=== PATIENT | female | born 1955 | race Caucasian/White ===

== ENCOUNTER 2016-07-17 10:25 | Outpatient (CLI) | payer BC, MEDICAID | END 2016-07-17 10:26 | disposition home or self-care (01) | DX: I10 Essential (primary) hypertension (principal); E28.2 Polycystic ovarian syndrome ==

== ENCOUNTER 2016-08-21 09:00 | Outpatient (CLI) | payer MEDICAID ==
[2016-08-21 08:07] LABS: CREATININE 0.8 mg/dL (0.4-1.0)
[2016-08-21] MEDS ORDERED: GADOBUTROL 10 MMOL/10 ML VIAL IVP ONE (10:00)
--- NOTE | 2016-08-21 11:13 | MRI Report ---
EXAM: RIGHT FOREARM MRI WITHOUT AND WITH CONTRAST EXAM DATE: 08/21/2016 10:10 AM. CLINICAL HISTORY: RT forearm mass for a few years, getting bigger, intermittent shooting pain from mass to RT wrist. Hx of bilateral carpal tunnel surgeries. COMPARISON: Right forearm series 08/06/2016. TECHNIQUE: Multiplanar, multisequence T1-weighted and fluid-sensitive sequences of the forearm before and after administration of intravenous contrast. IV contrast: 4mL Gadavist. Other: A skin marker w as placed over the site of lesion for reference. FINDINGS: Images are degraded by patient motion artifacts. Bones: No fractures or subluxations. No marrow edema or abnormal enhancement. No bone lesions. Joint Spaces: The wrist and elbow joints are not included. Ligaments: Visualize a portion of the interosseous membrane is intact. Tendons: Where visualized, the proximal wrist tendons are intact Musculature: No edema or fatty atrophy. Other: The lesion of concern is in the lateral subcutaneous tissues roughly in the mid forearm, oval- shaped in sagittal plane and wedge-shaped in axial plane measuring 36 x 26 x 34 mm with a well define d thin capsule, of mostly nonenhancing homogeneous fat signal except for a small ill-defined area of mildly increased T2 signal and mildly increased enhancement in the ventral part. No enlarged perilesi onal or intralesional vasculature. No abscess or cellulitis. IMPRESSION: The mass in the subcutaneous compartment of the right forearm has signal characteristic o f a lipoma measuring 36 x 26 x 34 mm with a well defined thin capsule. A small ill-defined area of mi ldly increased T2 signal and mildly increased enhancement in the ventral part of the lesion which is atypical for a benign lipoma but can be secondary to mild contusion with mild inflammation and not ne cessarily indicating sarcomatous transformation. However if there is progressive increase in size colleen n, follow-up imaging will be helpful to check for any morphological change that may raise a concern o f malignant transformation. Alternatively, excisional biopsy may be considered to obtain definitive h istological diagnosis. [facility] MUSCULOSKELETAL RADIOLOGY SECTION Referring Provider Line: [phone] SITE ID: [id number]
== END 2016-08-21 23:59 ==
LOC: DI 09:00
PROVIDERS: ATTEND Orthopaedic Surgery
DX: D17.21 Benign lipomatous neoplasm of skin and subcutaneous tissue of right arm (principal)
CPT/HCPCS: 36415; 73220; 82565; A9585

== ENCOUNTER 2016-10-16 08:01 | Day surgery (SDC) | payer MEDICAID ==
[2016-10-16] MEDS ORDERED: ceFAZolin 2 GM/50 ML 50 ML IV ONE (08:34)
[2016-10-16] MEDS ORDERED: LACTATED RINGERS 1,000 ML IV ONE ×2 (09:00→10:13)
[2016-10-16] MEDS ORDERED: SCOPOLAMINE PATCH TOP ONE (09:27)
[2016-10-16] MEDS ORDERED: PROPOFOL 200 MG/20 ML VIAL IVP ONE (09:45)
[2016-10-16] MEDS ORDERED: fentaNYL 100 MCG/2 ML VIAL IVP ONE (09:45)
[2016-10-16] MEDS ORDERED: ONDANSETRON 4 MG/2 ML VIAL IVP ONE (09:45)
[2016-10-16] MEDS ORDERED: DEXAMETHASONE 4 MG/ML VIAL IVP ONE (09:45)
[2016-10-16] MEDS ORDERED: MIDAZOLAM 2 MG/2 ML VIAL IVP ONE (09:45)
[2016-10-16] MEDS ORDERED: LIDOCAINE-MPF 2% 5 ML VIAL IM ONE (09:45)
[2016-10-16] MEDS ORDERED: LIDOCAINE 1% 50 ML MDV SUBQ ONE (09:54)
[2016-10-16] MEDS ORDERED: ALBUTEROL NEB 2.5 MG/3 ML INH ONE (10:18)
[2016-10-16] MEDS ORDERED: KETOROLAC 15 MG/ML VIAL ONE (10:32)
[2016-10-16] MEDS ORDERED: fentaNYL 100 MCG/2 ML VIAL ONE (10:35)
[2016-10-16] MEDS ORDERED: HYDROcod/ACETAM 5/325 MG TABLET ONE (11:24)
[2016-10-16 11:48] VITALS: BP 150/68
--- NOTE | 2016-10-16 13:18 | OPERATIVE REPORT ---
DATE OF SURGERY: 10/16/2016 00:00:00 PREOPERATIVE DIAGNOSIS: Right forearm mass. POSTOPERATIVE DIAGNOSIS: Right forearm mass. NAME OF PROCEDURE: Excisional biopsy of right forearm mass. SURGEON: Ebony Pulliam MD ANESTHESIA: General. INDICATIONS FOR SURGERY: The patient is a 61-year-old female with a progressively and slow growing ri ght volar radial forearm mass. This has not been terribly symptomatic, but it is bothersome to her an d there has been documented growth, with MRI suggesting a simply lipoma. FINDINGS AT SURGERY: The patient's volar radial mass was in the subcutaneous tissue. It was typical a ppearance of a lipoma. However, the patient had what appeared to be radial sensory fibers running int o the lesion and essentially a tangled web of loose nerve fibers. They were not able to be preserved and were resected with the mass. The radial vasculature was lying beneath, the radial artery was bene ath the lesion. There was no induration or hypertrophy of vessels or reaction. DESCRIPTION OF OPERATIVE PROCEDURE: The patient was taken to the operating room, given a general anes thetic. Her arm was sterilely prepped and draped in standard fashion. An incision was marked longitudinal over the volar radial forearm, and, after adequate timeout, the i ncision was made over the lesion and a careful dissection down through soft tissue was made to the le joellen. It was able to be freely mobilized. It did not appear to be encapsulated, but represented a lar ge conglomeration of fat with the tethered small vessels in the nerve defined distally but not proxim ally, and showing branching into the lesion. It was attempted to preserve these branches, ultimately finding that the nerve really had to be resected with the lesion as well, and it was removed. The area was irrigated thoroughly and tourniquet was deflated. Closure was with interrupted Vicryl azevedo bcutaneous and Prolene in skin. Sterile dressings were applied. Patient was placed in a volar splint and taken to the recovery room in stable condition. ESTIMATED BLOOD LOSS: Minimal. COMPLICATIONS: None. SPONGE/NEEDLE COUNTS: Correct. JOB #: [id number] EXT JOB #:[id number]
== END 2016-10-16 08:02 | disposition home or self-care (01) ==
LOC: SDS 08:01
PROVIDERS: ATTEND Orthopaedic Surgery
PROC: 0JBG0ZZ Excision of Right Lower Arm Subcutaneous Tissue and Fascia, Open Approach (ICD-10-PCS; principal; 2016-10-16 09:45)
DX: D17.21 Benign lipomatous neoplasm of skin and subcutaneous tissue of right arm (principal); I10 Essential (primary) hypertension; E66.9 Obesity, unspecified; E78.5 Hyperlipidemia, unspecified; F41.9 Anxiety disorder, unspecified; F32.9 Major depressive disorder, single episode, unspecified; Z88.5 Allergy status to narcotic agent; Z90.49 Acquired absence of other specified parts of digestive tract; Z90.710 Acquired absence of both cervix and uterus; Z68.41 Body mass index [BMI] 40.0-44.9, adult
CPT/HCPCS: 25071; A9270; J0690; J3490; J7120; J7613; 88304

== ENCOUNTER 2019-04-09 06:59 | Day surgery (SDC) | payer MEDICAID ==
[2019-04-09] MEDS ORDERED: fentaNYL 250 MCG/5 ML VIAL IVP ONE (07:00)
[2019-04-09] MEDS ORDERED: MIDAZOLAM 2 MG/2 ML VIAL IVP ONE (07:00)
[2019-04-09] MEDS ORDERED: LACTATED RINGERS 1,000 ML IV ONE (07:31)
[2019-04-09 10:08] VITALS: BP 132/84
== END 2019-04-09 07:00 | disposition home or self-care (01) ==
LOC: SDS 06:59
PROVIDERS: ATTEND Surgery
PROC: 0DBL8ZZ Excision of Transverse Colon, Via Natural or Artificial Opening Endoscopic (ICD-10-PCS; 2019-04-09)
PROC: 0DBN8ZZ Excision of Sigmoid Colon, Via Natural or Artificial Opening Endoscopic (ICD-10-PCS; principal; 2019-04-09 08:15)
DX: Z12.11 Encounter for screening for malignant neoplasm of colon (principal); D12.3 Benign neoplasm of transverse colon; D12.5 Benign neoplasm of sigmoid colon; K64.8 Other hemorrhoids; K64.4 Residual hemorrhoidal skin tags; K57.30 Diverticulosis of large intestine without perforation or abscess without bleeding; I10 Essential (primary) hypertension; E78.5 Hyperlipidemia, unspecified
CPT/HCPCS: 45380; 45385; J3010; J7120